=== PATIENT | female | born 1950 | race Native Hawaiian/Other Pacific Islander ===

== ENCOUNTER 2016-11-15 06:05 | Day surgery (SDC) | payer MEDICARE ==
[2016-11-10 10:45] VITALS: BMI 24.4
[2016-11-15] MEDS ORDERED: Lidocaine 2% Inj (20ml) ONE (06:58)
[2016-11-15] MEDS ORDERED: Iohexol 350 MG/100 ML VIAL ONE (06:59)
[2016-11-15] MEDS ORDERED: Iohexol 350mgl/ml 50 ML ONE (06:59)
[2016-11-15 07:00] LABS: BASO # 0.06 K/mm3 (0.0-2.0); BASO % 0.7 % (0.0-3.0); EOS # 0.5 (0.0-0.7); EOS % 5.9 % (1.5-5.0); GRAN % 66.4 % (50.0-68.0); HEMOGLOBIN 11.5 g/dL (12.0-16.0); LYMPH # 1.6 (1.2-3.4); LYMPH % 18.7 % (22.0-35.0); MEAN CELL VOLUME 88.8 fl (80.0-105.0); MEAN CORPUSCULAR HEMOGLOBIN 29.3 pg (25.0-35.0); MEAN PLATELET VOLUME 8.4 fl (7.0-11.0); MONO # 0.7 (0.1-0.6); MONO % 8.3 % (1.0-6.0); PLATELET COUNT 350 10^3/uL (120.0-450.0); RBC 3.92 10^6/uL (3.5-6.1); RED CELL DISTRIBUTION WIDTH 14.2 % (11.5-14.5); WHITE BLOOD COUNT 8.8 10^3/ul (4.5-11.0)
[2016-11-15 07:05] LABS: INR 1.02 (0.93-1.08); PARTIAL THROMBOPLASTIN TIME 27.6 Seconds (23.7-30.8)
[2016-11-15] MEDS ORDERED: DiphenhydrAMINE 50 mg/ml Inj ONE (07:14)
[2016-11-15] MEDS ORDERED: Famotidine 20mg/50ml 20 MG/50 ML BAG IVPB ONE (07:14)
[2016-11-15 07:34] LABS: CALCIUM 9.8 mg/dL (8.4-10.5)
[2016-11-15] MEDS ORDERED: Midazolam 2 MG/2 ML VIAL ONE (07:42)
[2016-11-15 08:00] VITALS: O2SAT 98
[2016-11-15] MEDS ORDERED: Nitroglycerin 50mg in D5W 0 MG/0 ML BOTTLE IV ONE (08:06)
[2016-11-15] MEDS ORDERED: Sodium Chloride 0.9% 1,000 ML IV SCH (08:45)
--- NOTE | 2016-11-15 09:48 | CARD ---
APPROVED REPORT EKG Measurement Heart [id number] [id number] <Conclusion> Normal sinus rhythm High Voltage-LVH.
--- NOTE | 2016-11-15 09:49 | CARD ---
APPROVED REPORT EKG Measurement Heart [id number] 160P53 [id number] <Conclusion> Sinus rhythm with occasional premature ventricular complexes Otherwise normal ECG
--- NOTE | 2016-11-15 10:05 | CARDCATH ---
PROCEDURE DATE: 11/15/2016 CARDIAC CATHETERIZATION AND PERCUTANEOUS TRANSLUMINAL CORONARY ANGIOPLASTY AND STENT OF AN LEFT ANTERIOR DESCENDING PERFORMING PHYSICIAN: Montez Villa MD HISTORY: The patient is a 66-year-old woman who presents with exertional dyspnea. The patient's past medical history includes history of PTCA and stent several years ago. She suffers from hypertension, diabetes mellitus and hypercholesterolemia. She underwent a stress test which showed ischemia in the apical region. A cardiac catheterization was recommended. CLINICAL INDICATIONS AND FINDINGS: 1. Left heart catheterization with coronary angiography and left ventriculogram followed by PTCA and stent of an LAD. 2. The right femoral artery was cannulated with 6-Persian sheath. There were no complications. 3, The findings on catheterization revealed a left ventricle that contracted normally. Estimated ejection fraction of 60%. 4. Her coronary anatomy revealed a right dominant circulation. The RCA was free of significant disease. 5. The left main artery was unremarkable. 6. The LAD and diagonal vessels revealed intimal irregularities. 7. The midportion of the LAD at the at the place of the previous stent revealed a 99% stenoses. 8. The circumflex artery and obtuse marginal branches were free of significant disease. DESCRIPTION OF THE PROCEDURE: The patient was started on intravenous Angiomax. On the fluoroscopic guide, an EBU guiding catheter was placed in the ostium of the left main artery. An 0.014 ATW wire was used to cross the critical lesion, a 2.5 balloon was utilized to pre-dilate the lesion. A 3.5 x 15 mm drug-eluting stent was placed and deployed at 14 ounces of pressure. Repeat coronary angiography revealed an excellent result with no residual stenosis and BUDDY III flow. Angio-Seal was used to close the femoral artery site. The patient tolerated the procedure well. IMPRESSION: 1. In summary, the procedure was successful for percutaneous transluminal coronary angioplasty and stent of a 99% mid left anterior descending stenoses. 2. Cardiac catheterization revealed in-stent stenoses of the mid left anterior descending lesion. 3. The left ventricle was normal. OLLIE N: Given these findings, the patient will need to remain on aspirin indefinitely and Plavix for at least a year and undergo a strict cardiac risk reduction program. Montez Villa MD
[2016-11-15 17:01] VITALS: RESP 20
--- NOTE | 2016-11-15 20:06 | CP.PCM.PN ---
Subjective - Date & Time of Evaluation Date of Evaluation: 11/15/16 Time of Evaluation: 19:54 - Subjective Subjective: DRAFT head ache. Rx,tylelnol S/P PTCA LAD. 120/83. Objective - Vital Signs/Intake and Output Vital Signs (last 24 hours): Temp Pulse Resp BP Pulse Ox 98.2 F 84 20 125/71 98 11/15/16 17:01 11/15/16 18:00 11/15/16 17:01 11/15/16 17:01 11/15/16 06:45 - Medications Medications: Current Medications Aspirin (Ecotrin) 81 mg PO DAILY [facility] Last Admin: 11/15/16 11:09 Dose: Not Given Atorvastatin Calcium (Lipitor) 40 mg PO DIN [facility] Last Admin: 11/15/16 17:24 Dose: Not Given Clopidogrel Bisulfate (Plavix) 75 mg PO DAILY [facility] Last Admin: 11/15/16 11:09 Dose: Not Given - Labs Labs: 11/15/16 06:30 11/15/16 06:30 PT 11.0 Seconds (9.9-11.8) 11/15/16 06:30 INR 1.02 (0.93-1.08) 11/15/16 06:30 APTT 27.6 Seconds (23.7-30.8) 11/15/16 06:30
--- NOTE | 2016-11-15 23:47 | CP.PCM.HP ---
History of Present Illness - History of Present Illness History of Present Illness: 66 year old female with history of CAD with 2 prior FANTASMA placements presents for observation s/p Cardiac Cath with FANTASMA placement in LAD (90% occlusion). Pt reports that she has been having intermittent middle chest pain for the past two to three weeks. She states the episodes last between a few seconds to a few minutes at a time and is described as a squeezing chest pain associated with left arm fatigue and shortness of breath. She states that the pain is worse with minimal exertion, such as walking up two flights of stairs, but sometimes occurs at rest. It does not radiate. Pt was evaluated by her cardialogist on (Dr. Villa) who sent her in for a cardiac catheterization. At this time, pt has no complaints. Son (Singh) is at bedside: PMH: DM2, Asthma, COPD, CAD with Stents in 1999 and 2008, Angina, HLD, HTN, Vertigo, TIA/Syncope, Arthritis, Osteoporosis, Anemia, GED, Glaucoma, Breast CA , Uterine CA, Macular degeneration, cataracts, migraines, neuropathy, diverticulosis PSH: Hemorrhoidectomy, Cholecystectomy, Appendectomy, LINA (some ovarian remnants as per pt), Left breast mastectomy with node, PTCA with FANTASMA placement x3 (1999, , 2016), Colonoscopy FHx: Genetic testing done at [facility] and pt reports it was negative. Father with lung CA and Jaw Bone CA ( 2004), Mother Bone cancer and DM, Brother Pancreatic CA ( a couple years ago), Sister with bone cancer, Sister from breast cancer 3 years ago age 49. Medications: Ramipril 5 mg PO QAM, Rosuvastatin 5 mg PO QD, ASA 81 mg PO QD, Glucosamine and Chondroitin Cap 1 cap PO QD, Metformin 1000 mg PO BID, Vitamin B Complex 1 tab PO QD, Norvasc 5 mg PO QPM, Plavix 75 mg PO QD, Vit. E 100U PO QD, Meclizine (not sure of dosage) PO PRN, Ocuvite PRN Allergies: Seafood (difficulty breathing), Alprazolam (bruising, rash), Latex ( Rash), Tetanus diptheria toxoids and tetanus toxoid adsorbed (rash when administered as a child) Social Hx: (+) smoking history but quit 38 years ago, (+) etoh, occasional glass of wine on special occasions Present on Admission - Present on Admission Any Indicators Present on Admission: No Review of Systems - Hematologic/Lymphatic Additional comments: Constitutional: pt denies fever, chills, generalized weakness ENT: pt denies dysphagia, otalgia, hearing deficit, rhinorrhea Eyes: pt denies sudden loss of vision, diplopia, blurred vision MSK: pt denies muscle stiffness, joint pain, extremity cramping Cardio: pt denies sob, heart murmur, cp Pulm: pt denies cough, hemoptysis, wheeze GI: pt denies loss of appetite, abdominal pain, constipation, melena, n/v/d : pt denies burning on urination, urinary frequency, hematuria, urinary urgency Neuro: pt denies paresis, paresthesia, dizziness, ramirez, numbness, tingling Derm: pt denies skin changes, lesions, nail changes Endo: pt denies intolerance to heat/cold, diaphoresis, night sweats, polydipsia Psych: pt denies anxiety, depression, mood changes Past Patient History - Tetanus Immunizations Tetanus Immunization: Unknown - Past Social History Chewing Tobacco Use: No - CARDIAC Hx Pacemaker: No - PULMONARY Hx Chronic Obstructive Pulmonary Disease (COPD): Yes - ENDOCRINE/METABOLIC Hx Diabetes Mellitus Type 1: Yes - HEMATOLOGICAL/ONCOLOGICAL Hx Blood Transfusions: No - MUSCULOSKELETAL/RHEUMATOLOGICAL Hx Musculoskeletal Disorders: Yes - GASTROINTESTINAL Hx Diverticulitis: Yes - PSYCHIATRIC Hx Emotional Abuse: No Hx Physical Abuse: No Hx Substance Use: No - SURGICAL HISTORY Hx Surgeries: Yes - ANESTHESIA Hx Anesthesia Reactions: Yes (SPINAL NO EFFECT) Hx Malignant Hyperthermia: No Meds Allergies/Adverse Reactions: Allergies Allergy/AdvReac Type Severity Reaction Status Date / Time alprazolam [From Xanax] Allergy Severe BRUISING;RA Verified 11/14/16 14:14 SH latex Allergy Severe RASH Verified 11/14/16 14:14 tetanus and diphtheria Allergy Severe RASH Verified 11/14/16 14:14 toxoids tetanus toxoid, adsorbed Allergy Severe RASH Verified 11/14/16 14:14 SEAFOOD Allergy Severe DIFFICULTY Uncoded 11/14/16 14:14 BREATHING Physical Exam - Additional Findings Additional findings: VS as above Constitutional: a&o x 4, nad Head and Neck: neck supple, no jvd, trachea midline, carotid midline, no cervical/head mass Eyes: marine, nonicteric sclera, eom intact ENT: auditory acuity grossly intact, throat not congested, no nasal deformity Cardio: rrr, no m/r/g, no carotid bruit, nml s1, s2 Pulm: no accessory muscle use, equal nml breath sounds bilaterally, ctab Abd: s/nt/nd, nbs x 4 q, no palpable masses Derm: no rashes, no ulcers, no lesions Extr: + cath access site c/d/i; no edema, no cyanosis, no calf tenderness, no lesions, no varicosities Neuro: cn II-XII grossly intact, ue and le 5/5 muscle strength bilaterally, no los ue, le bilaterally and core Results - Vital Signs Recent Vital Signs: Last Vital Signs Temp 98.2 F 11/15/16 17:01 Pulse 78 11/15/16 22:00 Resp 20 11/15/16 17:01 BP 120/83 11/15/16 19:45 Pulse Ox 98 11/15/16 06:45 - Labs Result Diagrams: 11/15/16 06:30 11/15/16 06:30 Labs: Laboratory Results - last 24 hr 11/15/16 11/15/16 11/15/16 06:30 06:30 06:30 WBC 8.8 RBC 3.92 Hgb 11.5 L Hct 34.8 L MCV 88.8 MCH 29.3 MCHC 33.0 RDW 14.2 Plt Count 350 MPV 8.4 Gran % 66.4 Lymph % (Auto) 18.7 L [place] % (Auto) 8.3 H Eos % (Auto) 5.9 H Baso % (Auto) 0.7 Gran # 5.80 Lymph # 1.6 [place] # 0.7 H Eos # 0.5 Baso # 0.06 PT 11.0 INR 1.02 APTT 27.6 Sodium 143 Potassium 4.2 Chloride 106 Carbon Dioxide 23 Anion Gap 18 BUN 27 H Creatinine 1.2 Est GFR ( Amer) 54 Est GFR (Non-Af Amer) 45 POC Glucose (mg/dL) Random Glucose 167 H Calcium 9.8 Triglycerides 93 Cholesterol 135 LDL Cholesterol Direct 70 HDL Cholesterol 45 Blood Type Blood Type Confirm Antibody Screen BBK History Checked 11/15/16 11/15/16 11/15/16 06:30 06:45 09:29 WBC RBC Hgb Hct MCV MCH MCHC RDW Plt Count MPV Gran % Lymph % (Auto) [place] % (Auto) Eos % (Auto) Baso % (Auto) Gran # Lymph # [place] # Eos # Baso # PT INR APTT Sodium Potassium Chloride Carbon Dioxide Anion Gap BUN Creatinine Est GFR ( Amer) Est GFR (Non-Af Amer) POC Glucose (mg/dL) 148 H Random Glucose Calcium Triglycerides Cholesterol LDL Cholesterol Direct HDL Cholesterol Blood Type O POSITIVE Blood Type Confirm O POSITIVE Antibody Screen Negative BBK History Checked No verified bt 11/15/16 11/15/16 11/15/16 11:51 16:55 21:43 WBC RBC Hgb Hct MCV MCH MCHC RDW Plt Count MPV Gran % Lymph % (Auto) [place] % (Auto) Eos % (Auto) Baso % (Auto) Gran # Lymph # [place] # Eos # Baso # PT INR APTT Sodium Potassium Chloride Carbon Dioxide Anion Gap BUN Creatinine Est GFR ( Amer) Est GFR (Non-Af Amer) POC Glucose (mg/dL) 185 H 222 H 226 H Random Glucose Calcium Triglycerides Cholesterol LDL Cholesterol Direct HDL Cholesterol Blood Type Blood Type Confirm Antibody Screen BBK History Checked Assessment & Plan - Assessment and Plan (Free Text) Assessment: Assessment: 66 year old female with history of CAD with 2 prior FANTASMA placements presents for observation s/p Cardiac Cath with FANTASMA placement in LAD (90% occlusion) Plan: 1. s/p PTCA of restenosed FANTASMA in LAD (90%) FANTASMA placed by Dr. Villa on 11/15 Continue plavix and ASA. PT is 11.0, INR is 1.02, PTT is 27.6 Cath site is CDI, no erythema, tenderness or signs of infection Radial, brachial, popliteal and DP pulses strong bilaterally, Continue to monitor pulses Echo (11/10): 1. Good LV function. 2. Dilated LA. 3. Calcified AoV with AoV sclerosis w/ mild stenosis. 3. Mild TR. 4. No Pulm HTN. 5. LVEF estimated at 65.6% Carotid duplex (11/10): 1. Bilateral 20-39% proximal ICA stenosis. 2. Anterograde flow in bilateral vertebral arteries. Myocardial perfusion ST (11/10): 1. Possibly abnormal SPECT myocardial perfusion study. 2. Mildly reversible, small, apical defect is suspicious of ischemia. 3. Normal gated wall motion of the LV change may be new (04/17/12) 2. HTN 126/70 Pt is hemodynamically stable. No complaints Continue to monitor BP c/w home meds 3. HLD c/w home meds 4. NIDDM Random Glucose is 167 c/w home meds
[2016-11-16 06:09] LABS: BASO # 0.01 K/mm3 (0.0-2.0); BASO % 0.1 % (0.0-3.0); EOS % 0.1 % (1.5-5.0); GRAN # 10.21 (1.4-6.5); GRAN % 77.2 % (50.0-68.0); HEMOGLOBIN 11.1 g/dL (12.0-16.0); LYMPH % 15.2 % (22.0-35.0); MEAN CELL VOLUME 88.6 fl (80.0-105.0); MEAN CORPUSCULAR HEMOGLOBIN 29.4 pg (25.0-35.0); MEAN CORPUSCULAR HGB CONC 33.2 g/dl (31.0-37.0); MEAN PLATELET VOLUME 8.4 fl (7.0-11.0); MONO % 7.4 % (1.0-6.0); PLATELET COUNT 320 10^3/uL (120.0-450.0); RBC 3.77 10^6/uL (3.5-6.1); RED CELL DISTRIBUTION WIDTH 14.1 % (11.5-14.5); WHITE BLOOD COUNT 13.2 10^3/ul (4.5-11.0)
[2016-11-16 06:17] VITALS: BP 131/79; PULSE 76; TEMP 98
[2016-11-16 06:24] LABS: ALB/GLOB RATIO 1.4 (1.1-1.8); ALT/SGPT 29 U/L (7-56); AST/SGOT 21 U/L (15-39); BLOOD UREA NITROGEN 28 mg/dL (7-21); CALCIUM 9.1 mg/dL (8.4-10.5); GFR AFRICAN-AMERICAN > 60; GFR NON-AFRICAN AMERICAN 55; MAGNESIUM 1.7 mg/dL (1.7-2.2)
--- NOTE | 2016-11-16 09:07 | PN ---
DATE: 11/16/2016 SUBJECTIVE: The patient is ambulating without symptoms. PHYSICAL EXAMINATION VITAL SIGNS: Stable. NECK: Negative JVD. LUNGS: Without rales. HEART: Reveals S1, S2. EXTREMITIES: Without edema. The right groin site is stable. EKG is unchanged. LABORATORY DATA: Stable. IMPRESSION: 1. Stable post percutaneous transluminal coronary angioplasty and stent of a 99% left anterior descending artery. 2. Hypercholesterolemia. 3. Coronary artery disease. 4. Diabetes mellitus. Given these findings, the patient is stable for discharge. I have enrolled the patient in the cardiac rehab program. We will review her medications. From a cardiac perspective, the patient can be discharged. Followup instructions are given. Montez Villa MD
--- NOTE | 2016-11-16 11:41 | CARD ---
APPROVED REPORT EKG Measurement Heart [id number] 164P43 [id number] <Conclusion> Normal sinus rhythm Normal ECG
--- NOTE | 2016-11-16 12:01 | CP.PCM.DIS ---
Provider - Provider Attending physician: Montez Villa MD Primary care physician: Sarika Hernandez MD Consults: Cardiology: Dr. Villa Time Spent in preparation of Discharge (in minutes): 45 Diagnosis - Discharge Diagnosis (1) S/P PTCA (percutaneous transluminal coronary angioplasty) Status: Acute Hospital Course - Lab Results Lab Results: Most Recent Lab Values WBC 13.2 10^3/ul (4.5-11.0) H D 11/16/16 05:30 RBC 3.77 10^6/uL (3.5-6.1) 11/16/16 05:30 Hgb 11.1 g/dL (12.0-16.0) L 11/16/16 05:30 Hct 33.4 % (36.0-48.0) L 11/16/16 05:30 MCV 88.6 fl (80.0-105.0) 11/16/16 05:30 MCH 29.4 pg (25.0-35.0) 11/16/16 05:30 MCHC 33.2 g/dl (31.0-37.0) 11/16/16 05:30 RDW 14.1 % (11.5-14.5) 11/16/16 05:30 Plt Count 320 10^3/uL (120.0-450.0) 11/16/16 05:30 MPV 8.4 fl (7.0-11.0) 11/16/16 05:30 Gran % 77.2 % (50.0-68.0) H 11/16/16 05:30 Lymph % (Auto) 15.2 % (22.0-35.0) L 11/16/16 05:30 [place] % (Auto) 7.4 % (1.0-6.0) H 11/16/16 05:30 Eos % (Auto) 0.1 % (1.5-5.0) L 11/16/16 05:30 Baso % (Auto) 0.1 % (0.0-3.0) 11/16/16 05:30 Gran # 10.21 (1.4-6.5) H 11/16/16 05:30 Lymph # 2.0 (1.2-3.4) 11/16/16 05:30 [place] # 1.0 (0.1-0.6) H 11/16/16 05:30 Eos # 0.0 (0.0-0.7) 11/16/16 05:30 Baso # 0.01 K/mm3 (0.0-2.0) 11/16/16 05:30 PT 11.0 Seconds (9.9-11.8) 11/15/16 06:30 INR 1.02 (0.93-1.08) 11/15/16 06:30 APTT 27.6 Seconds (23.7-30.8) 11/15/16 06:30 Sodium 142 mmol/L (132-148) 11/16/16 05:30 Potassium 3.9 mmol/L (3.6-5.0) 11/16/16 05:30 Chloride 109 mmol/L (95-110) 11/16/16 05:30 Carbon Dioxide 19 mmol/L (21-33) L 11/16/16 05:30 Anion Gap 18 (10-20) 11/16/16 05:30 BUN 28 mg/dL (7-21) H 11/16/16 05:30 Creatinine 1.0 mg/dL (0.5-1.4) 11/16/16 05:30 Est GFR ( Amer) > 60 11/16/16 05:30 Est GFR (Non-Af Amer) 55 11/16/16 05:30 POC Glucose (mg/dL) 134 mg/dL (65-110) H 11/16/16 07:12 Random Glucose 137 mg/dL (70-110) H 11/16/16 05:30 Calcium 9.1 mg/dL (8.4-10.5) 11/16/16 05:30 Phosphorus 3.7 mg/dL (2.5-4.5) 11/16/16 05:30 Magnesium 1.7 mg/dL (1.7-2.2) 11/16/16 05:30 Total Bilirubin 0.4 mg/dL (0.2-1.3) 11/16/16 05:30 AST 21 U/L (15-39) 11/16/16 05:30 ALT 29 U/L (7-56) 11/16/16 05:30 Alkaline Phosphatase 48 U/L (38-133) 11/16/16 05:30 Total Protein 7.0 g/dL (5.8-8.3) 11/16/16 05:30 Albumin 4.0 g/dL (3.0-4.8) 11/16/16 05:30 Globulin 2.9 gm/dL 11/16/16 05:30 Albumin/Globulin Ratio 1.4 (1.1-1.8) 11/16/16 05:30 Triglycerides 93 mg/dL (35-160) 11/15/16 06:30 Cholesterol 135 mg/dL (130-200) 11/15/16 06:30 LDL Cholesterol Direct 70 mg/dL (0-129) 11/15/16 06:30 HDL Cholesterol 45 mg/dL (29-60) 11/15/16 06:30 Blood Type O POSITIVE 11/15/16 06:30 Blood Type Confirm O POSITIVE 11/15/16 06:45 Antibody Screen Negative 11/15/16 06:30 BBK History Checked No verified bt 11/15/16 06:30 - Hospital Course Hospital Course: Upon Admission 66 female PMHx CAD s/p 2 prior FANTASMA presented for cardiac cath with FANTASMA placement in LAD [99% occlusion]. Patient reported intermittent mid chest pain for 2-3 weeks on admission that lasted few seconds to minutes and was a squeezing sensation associated with left arm fatigue and SOB. Patient's chest pain was exacerbated with minimal exertion [ie walking up 2 flights of stairs] but also at rest. Patient's cardiac cath showed 99% restenosis of FANTASMA in midportion of LAD. A 3.5 x 15mm drug eluting stent was placed in mid left anterior LAD. Patient tolerated procedure well and had no postcath complications. 11/16 EKG showed NSR , patient had no acute complaints on examination, and patient was deemed clinically stable for discharge. 1) s/p PTCA and stent of 99% LAD: Plavix for 1 year and ASA indefinitely 2) Hypercholesterolemia: continue home regimen 3) CAD: patient to follow up with cardiology and has been enrolled in cardiac rehab program 4) DM: Patient to not take her Metformin for 48 hours post cath. Upon Discharge Patient stable for discharge as per hospitalist Dr. Brown and turkey boner Dr. Villa. Patient to take new medications as prescribed: -ASA 81mg po daily -Plavix 75mg po daily Patient to not take her Metformin for 48 hours post cath. Patient to follow up with PMD and [employer]. Patient has been enrolled in a cardiac rehab program as Dr. Villa. If symptoms persist or worsen patient to visit ER immediately. Instructions discussed in detail with patient who understands and agrees. Please note this is a discharge summary. For full hospital course please refer to EMR. Discharge Exam - Head Exam Head Exam: ATRAUMATIC, NORMAL INSPECTION, NORMOCEPHALIC - Eye Exam Eye Exam: EOMI, Normal appearance, PERRL. absent: Conjunctival injection, Scleral icterus Pupil Exam: NORMAL ACCOMODATION - ENT Exam ENT Exam: Mucous Membranes Moist - Neck Exam Neck exam: Full Rom, Normal Inspection - Respiratory Exam Respiratory Exam: Clear to PA & Lateral, NORMAL BREATHING PATTERN, UNREMARKABLE. absent: Accessory Muscle Use, Rales, Rhonchi, Wheezes - Cardiovascular Exam Cardiovascular Exam: +S1, +S2. absent: Systolic Murmur - GI/Abdominal Exam GI & Abdominal Exam: Normal Bowel Sounds, Soft. absent: Tenderness - Extremities Exam Extremities exam: normal capillary refill, normal inspection, pedal pulses present - Back Exam Back exam: NORMAL INSPECTION. absent: rash noted - Neurological Exam Neurological exam: Alert, Oriented x3 - Psychiatric Exam Psychiatric exam: Normal Affect, Normal Mood - Skin Skin Exam: Dry, Intact, Normal Color, Warm Discharge Plan - Follow Up Plan Condition: STABLE Disposition: HOME/ ROUTINE Instructions: Cardiac Stress Test (DC), Heart Healthy Diet (DC), Heart Catheterization (DC) Referrals: Sarika Hernandez MD [Primary Care Provider] -
== END 2016-11-16 10:46 | disposition home or self-care (01) ==
LOC: CATH 06:05 → 2RSO 08:44 → CATH 11-16 10:46
PROVIDERS: ATTEND Internal Medicine Cardiovascular Disease
DX: I25.10 Atherosclerotic heart disease of native coronary artery without angina pectoris (principal); I10 Essential (primary) hypertension; E11.9 Type 2 diabetes mellitus without complications; E78.00 Pure hypercholesterolemia, unspecified; Z95.5 Presence of coronary angioplasty implant and graft; J44.9 Chronic obstructive pulmonary disease, unspecified; J45.909 Unspecified asthma, uncomplicated; R42 Dizziness and giddiness; M19.90 Unspecified osteoarthritis, unspecified site; M81.0 Age-related osteoporosis without current pathological fracture; D64.9 Anemia, unspecified; H40.9 Unspecified glaucoma; H35.30 Unspecified macular degeneration; H26.9 Unspecified cataract; G43.909 Migraine, unspecified, not intractable, without status migrainosus; G62.9 Polyneuropathy, unspecified; K57.90 Diverticulosis of intestine, part unspecified, without perforation or abscess without bleeding; R55 Syncope and collapse; Z86.73 Personal history of transient ischemic attack (TIA), and cerebral infarction without residual deficits; Z90.49 Acquired absence of other specified parts of digestive tract; Z85.3 Personal history of malignant neoplasm of breast; Z85.42 Personal history of malignant neoplasm of other parts of uterus; Z90.12 Acquired absence of left breast and nipple; Z88.7 Allergy status to serum and vaccine; Z91.040 Latex allergy status; Z91.013 Allergy to seafood; Z87.891 Personal history of nicotine dependence
CPT/HCPCS: 36415 ×2; 80048; 80053; 80061; 82948 ×2; 83735; 84100; 85025 ×2; 85610; 85730; 86850; 86900; 93005 ×2; 93458; 99152; C1725; C1760; C1769 ×2; C1874; C1887; C2629; C9600; J0583; J1200; J1644; J2250; J2930; J3010; J7040 ×2; Q9967 ×3

== ENCOUNTER 2017-07-18 06:32 | Day surgery (SDC) | payer MEDICARE ==
[2017-07-18 07:17] VITALS: BMI 24.7
[2017-07-18] MEDS ORDERED: Propofol 10 mg/ml Inj (20 ML) ONE (07:58)
[2017-07-18] MEDS ORDERED: Lidocaine 2% Inj (20ml) ONE (07:58)
[2017-07-18] MEDS ORDERED: ePHEDrine 50 mg/ml Inj ONE (08:10)
[2017-07-18] MEDS ORDERED: Sodium Chloride 0.9% 1,000 ML IV SCH (08:30)
[2017-07-18 09:54] VITALS: PULSE 82; RESP 18; TEMP 98.1; O2SAT 100
[2017-07-18 10:45] VITALS: BP 117/71
== END 2017-07-18 10:19 | disposition home or self-care (01) ==
LOC: ENDO 06:32
PROVIDERS: ATTEND Specialist
DX: K63.5 Polyp of colon (principal); K62.5 Hemorrhage of anus and rectum; K57.30 Diverticulosis of large intestine without perforation or abscess without bleeding; K64.8 Other hemorrhoids; E11.9 Type 2 diabetes mellitus without complications; I25.10 Atherosclerotic heart disease of native coronary artery without angina pectoris; I10 Essential (primary) hypertension; J44.9 Chronic obstructive pulmonary disease, unspecified
CPT/HCPCS: 45380; 82948; 88305; J2704; J7040 ×2

== ENCOUNTER → 2018-07-09 | Outpatient (CLI) | payer MEDICARE | LOC: RAD 10:18 ==